=== PATIENT | male | born 1985 | race Two or more races ===

== ENCOUNTER 2024-07-31 13:59 | Emergency (ER) | payer SELFPAY ==
[~2024-07-31] VITALS: Ht 188 cm; Wt 87.0 kg
[2024-07-31 14:10] VITALS: TEMP 37; O2SAT 96
[2024-07-31 15:21] VITALS: BP 139/89; PULSE 81; RESP 18; O2SAT 99
== END 2024-07-31 15:20 | disposition home or self-care (01) ==
LOC: ER 13:59
DX: M79.601 Pain in right arm (principal); E11.9 Type 2 diabetes mellitus without complications
CPT/HCPCS: 99283